=== PATIENT | female | born 1960 | race Caucasian/White ===

== ENCOUNTER 2016-06-24 12:27 | Day surgery (SDC) | payer OTHER ==
[~2016-06-24] VITALS: Ht 152.4 cm; Wt 65.1 kg
[2016-06-24] VITALS (10 sets, daily range): BP systolic 115–143; BP diastolic 54–69; PULSE 75–80; RESP 11–16; O2SAT 93–97
[~2016-06-24 12:27] MED LIST: CeFAZolin 2 Gm/50 mL D5W IV Premix IV ONE; Clindamycin 900 mg/50 mL D5W IV ONE
[2016-06-24] MEDS ORDERED: Dexamethasone 4 mg/mL Inj ONE (12:28)
[2016-06-24] MEDS ORDERED: Propofol 10,000 mCg/mL 20 mL Inj ONE (12:28)
[2016-06-24] MEDS ORDERED: fentaNYL-PF 50 mCg/mL 2 mL Inj ONE (12:28)
[2016-06-24] MEDS ORDERED: MetoCLOpramide 5 mg/mL 2 mL Inj ONE (12:28)
[2016-06-24] MEDS ORDERED: Ondansetron 2 mg/mL 2 mL Inj ONE (12:28)
[2016-06-24] MEDS ORDERED: Clindamycin 900 mg/50 mL D5W Premix IV ONE (12:28)
[2016-06-24] MEDS ORDERED: FLUO40CA12 PO (12:56)
[2016-06-24] MEDS: Lactated Ringer's 1,000 ML IV SCH ×2 (12:58→13:48)
[2016-06-24] MEDS ORDERED: Bupivacaine-MPF 0.5% 30 mL Inj INFILTRATE ONE (13:50)
[2016-06-24] MEDS ORDERED: HYDROcodone-APAP 5-325 mg Tablet PO PRN (14:45)
[2016-06-24] MEDS ORDERED: Lactated Ringer's 1,000 ML IV ONE (14:46)
[2016-06-24] MEDS ORDERED: Lactated Ringer's 1,000 ML IV SCH (15:02)
[2016-06-24] MEDS ORDERED: Lactated Ringer's 500 ML IV PRN (15:02)
--- NOTE | 2016-06-24 15:03 | PCM.ANEP1 ---
Post Anesthesia Phase 1 PACU Phase 1 Assessment Vital Signs Vital Signs Date Time Temp Pulse Resp B/P Pulse Ox O2 Delivery O2 Flow Rate FiO2 06/24/16 14:58 36.7 80 16 143/69 96 Room Air 06/24/16 12:38 36.0 76 16 126/67 97 Room Air Anesthetic Administered: GA Level of Alertness: Awake, talking COOPER's with Equal Strength: Yes Pain: No Nausea or Vomiting: No Oxygen Delivery: Room Air Lungs: Clear to Auscultation Dermatome Level: Full Sensation Manuel Martinez MD Jun 24, 2016 15:03
--- NOTE | 2016-06-24 15:03 | PCM.HPANE ---
Patient Data Surgeon Admitting Provider: Attending Provider:Hunter Pete MD Primary Care Physician:Other,Physician Other Provider:Ruthy Toroingham Anesthesia Reason for Visit Left Leg Skin Cancer Ht/WT & BMI Height (Feet): 5 Height (Inches): 1 Weight (Kilograms): 64.4 Body Mass Index 26.00 Allergies Coded Allergies: Sulfa (Sulfonamide Antibiotics) (Verified Allergy, Unknown, 06/24/16) Uncoded Allergies: DARVOCET (Allergy, Unknown, 06/23/16) Medications Blood Thinner: Aspirin Reported Medications Fluoxetine (Prozac)40 Mg [id number] Mg PO DAILY Ref 0 06/24/16 History History of ENT Problems?: No Hx of Heart Problems?: No Hx of Respiratory Problem?: No Respiratory History: Denies:: Oxygen Administration Use of C-PAP Machine Hx Neurologic Problems?: No Hx of GI Problems?: Yes Gastrointestinal History: Positive for:: Gall Bladder Disease (removed) Hx of Problems?: No Female Hx: Denies:: Problems with Breasts? Skin History: Positive for:: History Skin Disorders? (skin cancer left leg current problem) Denies:: Pressure Ulcers Hx Musculoskeletal Problems?: No Hx Surgeries?: Yes (C sections x 3, gallbladder) Hx Any Other Health Problems?: Yes Other History: Positive for:: Cancer (skin ca left leg current admission problem) Have You Smoked inLast 12 mo: Yes Stop/Bang B- Body Mass Index > 35 kg/m2: No A- Age over 50: Yes N- Neck Large Circumference: No G- Gender Male: No Risk Assessment Category Category 1A: Patient has history of documented sleep apnea, and HAS NOT received any narcotic, sedative or anesthesia administration during this stay. Category 1B: Patient has history of documented sleep apnea, and HAS received any narcotic , sedative or anesthesia administration during this stay Category 2: Patient has SUSPECTED Obstructive Sleep Apnea, and HAS received any narcotic , sedative or anesthesia administration during this stay. Category 3: Patient has SUSPECTED Obstructive Sleep Apnea and HAS NOT received narcotic, sedative or anesthesia administration during this stay. Category 4: Outpatient in Procedural Areas with known sleep apnea or who screen positive for High Risk via the STOP/BANG questionnaire. Exam Exam General Appearance: Alert, Oriented X3, Cooperative, No Acute Distress HEENT/AIRWAY: MP 2 Lungs: Clear to Auscultation Heart: Exam Unremarkable Plan Impression Patient chart reviewed, patient interviewed and anesthestic plan with risks, benefits, and alternatives discussed, and informed consent obtained. ASA Physical Status: ASA2 Mod Systemic Disease Anesthetic Plan: GA Bene/Risks/Altern/Consents: Yes HP Complete Prior to Induction: Yes Manuel Martinez MD Jun 24, 2016 07:37
[2016-06-24] MEDS ORDERED: EPHEDrine Sulfate 50 mg/mL Inj IVPUSH PRN (15:05)
[2016-06-24] MEDS ORDERED: Dexamethasone 4 mg/mL Inj IVPUSH PRN (15:05)
[2016-06-24] MEDS ORDERED: fentaNYL-PF 50 mCg/mL 2 mL Inj IVPUSH PRN (15:05)
[2016-06-24] MEDS ORDERED: MetoCLOpramide 5 mg/mL 2 mL Inj IVPUSH PRN (15:05)
[2016-06-24] MEDS ORDERED: HYDROmorphone 1 mg/mL Inj IVPUSH PRN (15:05)
[2016-06-24] MEDS ORDERED: Phenylephrine 10,000 mCg/mL Inj IVPUSH PRN (15:05)
[2016-06-24] MEDS ORDERED: Ondansetron 2 mg/mL 2 mL Inj IVPUSH PRN (15:05)
--- NOTE | 2016-06-24 15:08 | PCM.ANEP2 ---
Post Anesthesia Evaluation ASA/CMS Post Anesthesia VS in Patient's Normal Range?: Yes Resp Stable; Airway Patent?: Yes CV Function & Hydration Stable: Yes Mental Status Recovered?: Yes Pain control Satisfactory?: Yes N/V Control Satisfactory?: Yes Manuel Martinez MD Jun 24, 2016 15:08
--- NOTE | 2016-06-24 16:11 | OP ---
[address] [address] OPERATIVE REPORT PATIENT: ADELINA MONCADA : 1960 MR#: [id number] ADMIT: 06/24/2016 JOB ID: [id number] DATE OF SURGERY: 06/24/2016 PREOPERATIVE DIAGNOSIS(ES): Left leg soft tissue defect status post Mohs procedure for removal of a squamous cell carcinoma. POSTOPERATIVE DIAGNOSIS(ES): Left leg soft tissue defect status post Mohs procedure for removal of a squamous cell carcinoma. Defect size 5 cm x 6 cm. PROCEDURE: Closure of left leg defect with local tissue rearrangement (bilobed flap. Total area of local tissue rearrangement 25 sq cm). SURGEON: Hunter Pete MD EXHIBIT ELECTRICIAN: CHANDANA Stephenson was present for necessary retraction, exposure and closure of the incisions. ANESTHESIA: General anesthesia. ESTIMATED BLOOD LOSS: Minimal. COMPLICATIONS: None apparent. SPECIMEN: None. INDICATIONS FOR PROCEDURE: This is a 56-year-old female patient with a left leg squamous cell carcinoma. The patient underwent a Mohs procedure at an outside institution today, June 24, 2016. The patient presents for closure of her subsequent Mohs defect. PROCEDURE/FINDINGS: The patient was identified in the preoperative area. Surgical site was marked. I then had a discussion with the patient and her regarding the method of closure including linear closure versus flap closure. They decided upon the latter. The patient was then taken back to the operating room and placed supine on the operating table. Appropriate time-outs were taken. General anesthesia was induced smoothly. The patient was then prepped and draped in the usual sterile manner. It was noted that the patient has a roughly ovoid defect on her left leg. It is located in the anterior aspect of the proximal leg. It extends from just medial to the midline to lateral to the midline. It is below the tibial prominence. There is soft tissue at the base of the wound. There is no exposed periosteum. A bilobed flap was then designed. Incision was then made along the bilobed flap with a #15 blade. I then deepened the incision down to the underlying muscle fascia. At the area over the tibia, a small amount of soft tissue was left at the base as not to violate the periosteum. Once the incision was made around the flap, I elevated the area around the defect as well as surrounding the flap. Care was taken not to disturb the area at the base of the flap where the vascular supply does come to the flap. Approximately 3-4 cm for elevation was done circumferentially except for the area of the pedicle. Once this has been done, the flap was rotated into the defect. It was sutured in several places using 2-0 Monocryl deep dermal sutures. Once this has been done, excess flap was removed. Intervening 3-0 Monocryl deep dermal sutures were then placed, followed by 4-0 Monocryl running subcuticular suture. Skin glue was then applied. The patient tolerated the procedure well. Needle count, sponge count, instrument counts were correct. At the end of the procedure, the patient was extubated and transported to recovery in stable condition. Again, the defect measured 5 cm x 6 cm, approximately 25 square cm in size. That is the area of local tissue rearrangement for closure.
== END 2016-06-24 23:59 | disposition home or self-care (01) ==
LOC: SAS 12:27
PROVIDERS: ATTEND Plastic Surgery
DX: Z48.1 Encounter for planned postprocedural wound closure (principal); C44.729 Squamous cell carcinoma of skin of left lower limb, including hip; F17.200 Nicotine dependence, unspecified, uncomplicated
CPT/HCPCS: 14021; J1100; J2405; J2765; J7120